=== PATIENT | female | born 1955 | race African-American/Black ===

== ENCOUNTER 2021-07-31 10:10 | Outpatient (CLI) | payer MEDICARE | END 2021-07-31 10:11 | disposition home or self-care (01) | LOC: CSHCT 10:10 | PROVIDERS: ATTEND Internal Medicine Gastroenterology | DX: R63.4 Abnormal weight loss (principal); K21.9 Gastro-esophageal reflux disease without esophagitis; K59.00 Constipation, unspecified; K57.30 Diverticulosis of large intestine without perforation or abscess without bleeding | CPT/HCPCS: 74177; 82565 ==

== ENCOUNTER 2023-03-23 14:20 | Outpatient (CLI) | payer OTHER | END 2023-03-23 14:21 | disposition home or self-care (01) | LOC: CSHCP 14:20 | PROVIDERS: ATTEND Student in an Organized Health Care Education/Training Program | DX: R06.09 Other forms of dyspnea (principal) | CPT/HCPCS: 94010; 94726; 94729; 94760 ==

== ENCOUNTER 2024-09-09 11:33 | Emergency (ER) | payer MEDICARE ==
[~2024-09-09 11:33] MED LIST: Iopamidol 370 76% 100 ML VIAL ONE
[2024-09-09 13:16] LABS: #Basophils 0.05 10x3/uL (0.0-0.2); #Eosinophils 0.28 10x3/uL (0.0-0.5); #Monocytes 0.71 10x3/uL (0.0-1.1); #Neutrophils 1.31 10x3/uL (1.5-8.4); %Basophils 1.1 % (0.0-2.0); %Eosinophils 6.2 % (0.0-6.0); %Lymphocytes 47.2 % (18.0-47.0); %Monocytes 15.8 % (0.0-10.0); %Neutrophils 29.3 % (40.0-75.0); Hematocrit 42.5 % (34.9-44.5); Hemoglobin 13.5 g/dL (12.0-15.5); Mean Corpuscular HGB CONC 31.8 g/dL (32.0-36.0); Mean Corpuscular Hemoglobin 26.9 pg (27.0-33.0); Mean Corpuscular Volume 84.7 fL (81.6-98.3); Mean Platelet Volume 9.8 fL (7.4-10.4); Platelet Count 245 10x3/uL (150-450); RBC Distribution Width 14.7 % (11.5-14.5); Red Blood Cell (RBC) Count 5.02 10x6/uL (3.90-5.03); White Blood Cell (WBC) Count 4.5 10x3/uL (3.5-10.5)
[2024-09-09 13:18] LABS: ALT (SGPT) 21 U/L (8-55); AST (SGOT) 34 U/L (5-34); Albumin 3.5 g/dL (3.4-4.8); Alkaline Phosphatase 106 U/L (40-110); Anion Gap 14 mmol/L (10-20); BUN (Urea Nitrogen) 12 mg/dL (9.8-20.1); Bilirubin, Total 0.3 mg/dL (0.2-1.2); Calc. Creatinine Clearance 0 mL/min (70-130); Calcium 9.6 mg/dL (7.8-10.44); Carbon Dioxide 24 mmol/L (23-31); Chloride 106 mmol/L (98-107); Estimated GFR 66; Globulin 3.6 g/dL (2.4-3.5); Glucose 88 mg/dL (83-110); Potassium 4.5 mmol/L (3.5-5.1); Protein, Total 7.1 g/dL (5.8-8.1); Sodium 139 mmol/L (136-145)
[2024-09-09 13:24] LABS: Troponin I Less than 0.010 ng/mL (< 0.028)
== END 2024-09-09 14:03 | disposition home or self-care (01) ==
LOC: CSHERS 11:33
DX: R06.02 Shortness of breath (principal); R07.89 Other chest pain; I10 Essential (primary) hypertension; H40.9 Unspecified glaucoma; Z86.711 Personal history of pulmonary embolism
CPT/HCPCS: 71275; 80053; 83880; 84484; 85025; 93005